=== PATIENT | female | born 1960 | race Caucasian/White ===

== ENCOUNTER 2021-08-18 12:33 | Emergency (ER) | payer BC, SELFPAY ==
--- NOTE | ~2021-08-18 | XR_ITS ---
EXAMINATION: XR shoulder RT min 2V DATE: 08/18/2021 12:57 INDICATION: Right shoulder pain. TECHNIQUE: 4 views of right shoulder were obtained. COMPARISON: None. FINDINGS: Bone alignment is normal. No fracture. Joint spaces are well maintained. IMPRESSION: 1. Normal right shoulder. Reviewed, dictated and finalized at location A. IMPRESSION: 1. Normal right shoulder.
[2021-08-18 12:35] VITALS: BP 152/91; PULSE 87; RESP 18; TEMP 36.3; O2SAT 98
--- NOTE | 2021-08-18 13:12 | ED.UPPEXIN ---
HPI - Extremity Injury (Upper) General Chief Complaint: Extremity Injury, Upper Stated Complaint: R. shoulder pain Time Seen by Provider: 08/18/21 12:42 History of Present Illness HPI narrative: Patient is a 61-year-old female who presents ER with right shoulder pain. Patient was walking up some steps yesterday when she fell forward striking her shoulder on either the rail of the stair. She did not strike her head or lose consciousness. No fevers or chills or sweats. No numbness or tingling to the affected extremity. Majority of her pain comes with forward flexion at the shoulder. No bruising. She uses ice throughout the day yesterday to help with discomfort. Related Data Allergies Allergy/AdvReac Type Severity Reaction Status Date / Time No Known Allergies Allergy Verified 08/18/21 12:38 Review of Systems Review of Systems: All systems reviewed & are unremarkable except as noted in HPI and below Musculoskeletal: Musculoskeletal: Denies back pain, Reports arthralgias, Denies joint swelling and Reports muscle cramps Neurologic: Denies syncope, Denies focal weakness and Denies numbness PMFSH Past Medical History Medical History (Updated 08/18/21 @ 13:19 by Dandre Tyler MD) Hyperlipidemia Hypertension Surgical History Surgical History (Updated 08/18/21 @ 13:15 by Dandre Tyler MD) No pertinent past surgical history Social History Social History (Updated 08/18/21 @ 13:15 by Dandre Tyler MD) Smoking status: Never smoker Exam Narrative: GENERAL: Well-appearing, well-nourished, and in no acute distress. HEAD: Normocephalic, atraumatic. EYES: PERRL and EOMI. CHEST: Clear to auscultation. No respiratory distress. HEART: Regular rate and rhythm. Normal peripheral pulses. EXTREMITIES: Focused exam the right upper extremity reveals normal interval external rotation of the shoulder, patient can reach behind her back towards her spine. She has pain with forward flexion at the shoulder. Also has pain over the anterior joint line. No swelling or bruising or redness. No tenderness along the clavicle. There is right-sided trapezius muscle discomfort with palpation. SKIN: Warm, dry, no rash. NEURO: No focal deficits. Alert and oriented x3. PSYCH: Normal mood and affect. Course Course Emergency Course: Shoulder contusion with muscle strain. Will treat with anti-inflammatories muscle relaxers. Discussed treatment plan. Discharge home. Vital Signs Vital signs: Vital Signs Temperature 97.3 F L 08/18/21 12:35 Pulse Rate 87 08/18/21 12:35 Respiratory Rate 18 08/18/21 12:35 Blood Pressure 152/91 H 08/18/21 12:35 Pulse Oximetry 98 08/18/21 12:35 Temperature 97.3 F L 08/18/21 12:35 Pulse Rate 87 08/18/21 12:35 Respiratory Rate 18 08/18/21 12:35 Blood Pressure 152/91 H 08/18/21 12:35 Pulse Oximetry 98 08/18/21 12:35 MDM - Extremity Injury (Upper) Imaging Data Radiologist's impression: ITS Impressions Shoulder X-Ray 08/18/21 12:58 IMPRESSION: 1. Normal right shoulder. Discharge Plan Discharge Clinical Impression: Contusion of shoulder, Shoulder strain Patient Disposition: Home, Self-Care Condition: Stable Instructions: Muscle Strain (ED) Additional Instructions: Return the ER if you have new numbness or weakness in your right arm, you have chest pain or shortness of breath, you suffer additional injury, or you have other concerns. Prescriptions: New cyclobenzaprine 10 mg tablet 10 mg PO TID PRN (Reason: muscle spasm) Qty: 12 RF: 0 naproxen 375 mg tablet 375 mg PO BID Qty: 14 RF: 0 Follow-up/Referrals: PHYSICIAN NOT ON STAFF,NONSTAFF [Primary Care Provider] - 1 Week
== END 2021-08-18 14:00 | disposition home or self-care (01) ==
LOC: ANHED 13:31
PROVIDERS: Emergency Provider Emergency Medicine
DX: S46.911A Strain of unspecified muscle, fascia and tendon at shoulder and upper arm level, right arm, initial encounter (principal); S40.011A Contusion of right shoulder, initial encounter; E78.5 Hyperlipidemia, unspecified; I10 Essential (primary) hypertension; W10.9XXA Fall (on) (from) unspecified stairs and steps, initial encounter
CPT/HCPCS: 73030; 99283

== ENCOUNTER 2021-09-04 09:44 | Emergency (ER) | payer BC, SELFPAY ==
--- NOTE | ~2021-09-04 | XR_ITS ---
XR finger 4th RT min 2V DATE: 09/04/2021 10:16 INDICATION: Bruising and swelling to right fourth digit TECHNIQUE: 4 views COMPARISON: None FINDINGS: No fracture or dislocation, periosteal reaction or bone destruction, radiopaque soft tissue foreign body or subcutaneous emphysema. Joint spaces are preserved. IMPRESSION: Negative Reviewed, dictated and finalized at location A. IMPRESSION: Negative
[2021-09-04 10:02] VITALS: BP 138/99; PULSE 84; RESP 20; TEMP 36.9; O2SAT 97
--- NOTE | 2021-09-04 10:11 | ED.UPPEXIN ---
HPI - Extremity Injury (Upper) General Chief Complaint: Extremity Injury, Upper Stated Complaint: Right Finger Pain Time Seen by Provider: 09/04/21 10:12 Source: patient Mode of arrival: ambulatory Limitations: no limitations History of Present Illness HPI narrative: 61-year-old female presents with pain and swelling to right ring finger since yesterday. Unsure of injury. 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 Noted at the end of the night that finger was swollen and bruised. States that her friend pulled on it and it popped, thought maybe she had jammed her finger. There was no increase in pain after friend pulled on her finger. This morning patient woke up and bruising and swelling was worse. Range of motion and distal neurovascularly intact. All systems reviewed and negative except as noted above. Related Data Home Medications Medication Instructions Recorded Confirmed lisinopril 20 mg PO DAILY 09/04/21 09/04/21 pravastatin 40 mg PO DAILY 09/04/21 09/04/21 sertraline 100 mg PO DAILY 09/04/21 09/04/21 Allergies Allergy/AdvReac Type Severity Reaction Status Date / Time No Known Allergies Allergy Verified 09/04/21 10:04 Review of Systems Review of Systems: CONSTITUTIONAL: Denies fever, chills, or sweats. EYES: Denies visual changes, redness, or discharge. ENT: Denies rhinorrhea, congestion, sore throat, or otalgia. CARDIOVASCULAR: Denies chest pain, palpitations, or edema. RESPIRATORY: Denies cough or dyspnea. GASTROINTESTINAL: Denies abdominal pain, nausea, vomiting, or diarrhea. GENITOURINARY: Denies dysuria or hematuria. SKIN: Denies rash or itching. MUSCULOSKELETAL: Denies back pain, joint pain, or myalgia. Reports pain, swelling and bruising to right ring finger. NEUROLOGIC: Denies headache, numbness, or weakness. PSYCHIATRIC: Denies anxiety or depression. All other systems reviewed are negative, except as documented in HPI. [facility] Past Medical History Medical History (Updated 09/04/21 @ 10:33 by Shanita Billings NP) Hyperlipidemia Hypertension Surgical History Surgical History (Updated 08/18/21 @ 13:15 by Dandre Tyler MD) No pertinent past surgical history Social History Social History (Updated 08/18/21 @ 13:15 by Dandre Tyler MD) Smoking status: Never smoker Comments At time of signature, agree with nursing past medical, surgical, social and family history. There is no relevant family history pertinent to the presenting complaint. Exam Narrative: GENERAL: This is a well-nourished, well-developed patient, in no apparent distress. HEAD: normocephalic, atraumatic. EYES: PERRL. Sclera clear/white. Vision is grossly intact. EARS: External ears normal NOSE: External nose normal NECK: Neck supple, non-tender without lymphadenopathy, masses or thyromegaly. CARDIOVASCULAR: Regular rate and rhythm without murmurs, gallops, or rubs. RESPIRATORY: Clear to auscultation. Breath sounds equal bilaterally. No wheezes, rales, or rhonchi. SKIN: warm, Dry, intact with no suspicious lesions or rash, good texture and turgor. NEURO: awake, alert, and oriented to person, place and time. There were no obvious focal neurologic abnormalities. EXTREMITIES: There is bruising to right finger. There is generalized tenderness but no point tenderness. Range of motion intact. Strength is normal. Distal neurovascularly intact. Course Course Level of Care: Express Care Visit Vital Signs Vital signs: Vital Signs Temperature 36.9 C 09/04/21 10:02 Pulse Rate 84 09/04/21 10:02 Respiratory Rate 20 09/04/21 10:02 Blood Pressure 138/99 H 09/04/21 10:02 Pulse Oximetry 97 09/04/21 10:02 Temperature 36.9 C 09/04/21 10:02 Pulse Rate 84 09/04/21 10:02 Respiratory Rate 20 09/04/21 10:02 Blood Pressure 138/99 H 09/04/21 10:02 Pulse Oximetry 97 09/04/21 10:02 Reviewed MDM - Extremity Injury (Upper)
== END 2021-09-04 10:30 | disposition home or self-care (01) ==
PROVIDERS: Emergency Provider Nurse Practitioner Family; PCP Nurse Practitioner Family
DX: S60.041A Contusion of right ring finger without damage to nail, initial encounter (principal); X58.XXXA Exposure to other specified factors, initial encounter; E78.5 Hyperlipidemia, unspecified; I10 Essential (primary) hypertension
CPT/HCPCS: 29130; 73140; 99213; G0463

== ENCOUNTER 2023-02-17 15:31 | Outpatient (CLI) | payer BC, SELFPAY ==
--- NOTE | ~2023-02-17 | MR_ITS ---
EXAMINATION: MR lumbar spine wo con DATE: 02/17/2023 16:32 INDICATION: Acute midline low back pain without sciatica. TECHNIQUE: Magnetic resonance imaging (MRI) of the lumbar spine was performed without intravenous con trast. COMPARISON: None FINDINGS: There is 8 degrees dextrocurvature of thoracolumbar spine. There are chronic bilateral L5 p ars defects. There is 6 mm anterolisthesis of L5 on S1. There is mild chronic anterior wedging of T11 vertebral body. There is severely decreased disc height at L5-S1 with endplate remodeling. The dista l spinal cord signal intensity is normal. The conus medullaris is at L1. Partially visualized is a 3. 2 cm cyst in the left adnexa. The following disc levels are specifically discussed: L1-L2: The disc does not extend beyond the endplate margin. There is mild bilateral facet joint osteo arthritis. There is no neural foraminal stenosis. There is no central canal stenosis. L2-L3: The disc is mildly bulging. There is no facet joint osteoarthritis. There is mild bilateral ne ural foraminal stenosis. There is no central canal stenosis. L3-L4: The disc is bulging. There is no facet joint osteoarthritis. There is mild bilateral neural fo raminal stenosis. There is mild central canal stenosis. L4-L5: The disc is bulging. There is mild right and moderate left facet joint osteoarthritis. There i s mild bilateral neural foraminal stenosis. There is no central canal stenosis. L5-S1: The disc is bulging and has an annular fissure. There is mild right and moderate left facet bryanna int osteoarthritis. There is mild bilateral neural foraminal stenosis. There is no central canal sten osis. IMPRESSION: 1. Chronic bilateral L5 pars defects with grade 1 anterolisthesis of L5 on S1. 2. Severe lower lumbar spondylosis. 3. Partially visualized 3.2 cm cyst in the left adnexa, probably benign. Pelvis ultrasound is recomme nded. Reviewed, dictated and finalized at location E. IMPRESSION: 1. Chronic bilateral L5 pars defects with grade 1 anterolisthesis of L5 on S1. 2. Severe lower lumbar spondylosis. 3. Partially visualized 3.2 cm cyst in the left adnexa, probably benign. Pelvis ultrasound is recommended.
== END 2023-02-17 15:32 | disposition home or self-care (01) ==
LOC: ANHIMG 15:44
PROVIDERS: PCP Nurse Practitioner Family; Visit Provider Nurse Practitioner Family
DX: M54.50 Low back pain, unspecified (principal); M43.06 Spondylolysis, lumbar region; M47.896 Other spondylosis, lumbar region
CPT/HCPCS: 72148